=== PATIENT | female | born 1975 | race Caucasian/White ===

== ENCOUNTER 2022-04-27 19:13 | Emergency (ER) | payer OTHER ==
[~2022-04-27 19:13] MED LIST: ALL DAY ALLERGY10 M2 PO; ATORVASTATIN CA40 MG PO; BACLOFEN 20MG T20 MG PO; CYANOCOBAL1000 MCG/1 SC; ELAVIL50 MG PO; ENOXAPARIN120 MG/0.8 SC; FOLIC ACID1 MG PO; LOVENOX80 MG/0.1 SUBD; MELATONIN10 MG PO; NEURONTIN100 MG PO; NORVASC10 MG PO; PERCOCET 10/321 EACH PO; PERCOCET 7.5/321 TAB PO; PRILOSEC20 MG PO; TRAZODONE HCL50 MG PO; VITAMIN D32000 UNI2 PO; ZOFRAN4 MG PO
[2022-04-27 20:24] LABS: BASOPHIL 0.3 % (0-2); EOSINOPHIL 0 % (0-5); HCT 42.8 % (37.0-47.0); HGB 14.3 g/dl (12.5-16.0); LYMPHOCYTE 17.5 % (15-48); MCH 30.4 pg (25.0-31.0); MCHC 33.4 g/dL (32.0-36.0); MCV 90.9 fL (78.0-100.0); MONOCYTE 3.5 % (0-12); MPV 10.1 fL (6.0-9.5); NEUTROPHIL 78.2 % (41-80); NRBC 0; PLT 276 K/uL (150-400); RBC 4.71 M/uL (4.20-5.40); RDW 13.6 % (11.5-14.0); WBC 10.6 K/uL (4.0-10.5)
[2022-04-27 20:38] LABS: BUN/CREAT RATIO (CALC) 11.1 RATIO; CREATININE 0.81 mg/dL (0.51-0.95); POTASSIUM 4.2 mmol/L (3.5-5.1)
[2022-04-27] MEDS ORDERED: LEVETIRACETAM500 MG PO (22:33)
[2022-04-27] MEDS ORDERED: NORCO 5-325 TA1 EACH PO (22:34)
== END 2022-04-27 22:51 | disposition home or self-care (01) ==
LOC: FER 19:13
PROVIDERS: Nurse Practitioner Family
DX: G40.909 Epilepsy, unspecified, not intractable, without status epilepticus (principal); M54.2 Cervicalgia; F17.210 Nicotine dependence, cigarettes, uncomplicated; Z88.0 Allergy status to penicillin
CPT/HCPCS: 36415; 70450; 72125; 73080; 73564; 80048; 85025

== ENCOUNTER 2022-05-22 14:51 | Emergency (ER) | payer OTHER ==
[~2022-05-22 14:51] MED LIST changes: +LEVETIRACETAM500 MG PO; +NORCO 5-325 TA1 EACH PO
[2022-05-22 16:45] LABS: BASOPHIL 0.5 % (0-2); EOSINOPHIL 0.3 % (0-5); HCT 43.8 % (37.0-47.0); HGB 13.9 g/dl (12.5-16.0); LYMPHOCYTE 34.8 % (15-48); MCH 30.2 pg (25.0-31.0); MCHC 31.7 g/dL (32.0-36.0); MONOCYTE 5.6 % (0-12); MPV 10.4 fL (6.0-9.5); NEUTROPHIL 57.6 % (41-80); NRBC 0; PLT 297 K/uL (150-400); RBC 4.61 M/uL (4.20-5.40); RDW 13.5 % (11.5-14.0); WBC 8.6 K/uL (4.0-10.5)
[2022-05-22 17:03] LABS: ALBUMIN 3.5 g/dL (3.4-5.0); BILIRUBIN - TOTAL 0.2 mg/dL (0.2-1.0); CREATININE 0.75 mg/dL (0.51-0.95); POTASSIUM 3.6 mmol/L (3.5-5.1); TOTAL PROTEIN 7.5 g/dL (6.4-8.2)
== END 2022-05-22 17:54 | disposition home or self-care (01) ==
LOC: FER 14:51
PROVIDERS: Emergency Medicine
DX: R22.41 Localized swelling, mass and lump, right lower limb (principal); I10 Essential (primary) hypertension; G40.909 Epilepsy, unspecified, not intractable, without status epilepticus; Z79.899 Other long term (current) drug therapy
CPT/HCPCS: 36415; 71045; 80053; 83880; 85025; 93971

== ENCOUNTER 2022-05-31 20:19 | Emergency (ER) | payer OTHER ==
[2022-05-31 20:40] LABS: BASOPHIL 0.3 % (0-2); EOSINOPHIL 0.2 % (0-5); HCT 45.3 % (37.0-47.0); HGB 14.7 g/dl (12.5-16.0); LYMPHOCYTE 27.4 % (15-48); MCH 30.4 pg (25.0-31.0); MCHC 32.5 g/dL (32.0-36.0); MCV 93.6 fL (78.0-100.0); MONOCYTE 5.8 % (0-12); MPV 10.6 fL (6.0-9.5); NEUTROPHIL 65.8 % (41-80); NRBC 0; PLT 331 K/uL (150-400); RBC 4.84 M/uL (4.20-5.40); RDW 13.7 % (11.5-14.0); WBC 12.7 K/uL (4.0-10.5)
[2022-05-31 20:44] LABS: INR 1.13 (0.9-1.2); PROTHROMBIN TIME 14.2 SECONDS (11.9-13.9); PTT 26.5 SECONDS (24.9-34.6)
[2022-05-31 20:59] LABS: ALBUMIN 3.9 g/dL (3.4-5.0); BILIRUBIN - TOTAL 0.3 mg/dL (0.2-1.0); BUN/CREAT RATIO (CALC) 15.8 RATIO; CREATININE 0.76 mg/dL (0.51-0.95); GLOBULIN (CALCULATION) 4.3 g/dL; POTASSIUM 3.5 mmol/L (3.5-5.1); TOTAL PROTEIN 8.2 g/dL (6.4-8.2)
== END 2022-06-01 00:05 | disposition home or self-care (01) ==
LOC: FER 20:19
PROVIDERS: Emergency Medicine
DX: G40.909 Epilepsy, unspecified, not intractable, without status epilepticus (principal); S09.90XA Unspecified injury of head, initial encounter; W05.0XXA Fall from non-moving wheelchair, initial encounter; Y92.129 Unspecified place in nursing home as the place of occurrence of the external cause; Z28.311 Partially vaccinated for COVID-19
CPT/HCPCS: 36415; 70450; 80053; 85025; 85610; 85730; J1953; J7030